=== PATIENT | male | born 1950 | race Caucasian/White ===

== ENCOUNTER 2016-11-18 10:45 | Outpatient (CLI) | payer BC, OTHER ==
--- NOTE | 2016-11-18 11:27 | DIAGNOSTIC IMAGING REPORT ---
PROCEDURE: XR LUMBAR SPINE 2 OR 3 VIEWS INDICATION: L/TH/NECK PX CERUMEN IMPACT EBONIE HEARING LOSS NASAL MASS TECHNIQUE: Three views. COMPARISON: None. FINDINGS: Osseous structures and disc spaces are normal. No evidence of an acute process or fracture. IMPRESSION: 1. Negative lumbar spine.
--- NOTE | 2016-11-18 11:29 | DIAGNOSTIC IMAGING REPORT ---
PROCEDURE: XR THORACIC SPINE 3 VIEWS INDICATION: L/TH/NECK PX CERUMEN IMPACT EBONIE HEARING LOSS NASAL MASS TECHNIQUE: Three views. COMPARISON: None. FINDINGS: Osseous structures and disc spaces are normal. No evidence of an acute process or fracture. IMPRESSION: 1. Negative thoracic spine.
--- NOTE | 2016-11-18 11:35 | DIAGNOSTIC IMAGING REPORT ---
PROCEDURE: XR CERVICAL SPINE 4 OR 5 VIEW INDICATION: NECK PAIN TECHNIQUE: Five views. COMPARISON: None. FINDINGS: There is spondylosis and uncinate process hypertrophy with neural foraminal impingement bilaterally at C3-4, C4-5, and C5-6. IMPRESSION: 1. Neural foraminal impingement bilaterally at C3-4 C4-5 and C5-6.
== END 2016-11-18 23:00 ==
LOC: XR SRH 10:45
DX: M48.02 Spinal stenosis, cervical region (principal); M54.6 Pain in thoracic spine; M54.5 Low back pain